=== PATIENT | male | born 1980 | race Caucasian/White ===

== ENCOUNTER 2018-03-07 09:42 | Emergency (ER) | payer BC ==
[~2018-03-07] VITALS: Ht 180.3 cm; Wt 86.0 kg
[2018-03-07 10:08] VITALS: Ht 180.3 cm; Wt 86.0 kg
[2018-03-07 12:24] VITALS: BP 148/88
== END 2018-03-07 12:24 | disposition home or self-care (01) ==
LOC: ED 09:42
DX: L03.012 Cellulitis of left finger (principal); K50.90 Crohn's disease, unspecified, without complications
CPT/HCPCS: 90715